=== PATIENT | male | born 1955 | race Caucasian/White ===

== ENCOUNTER → 2022-11-04 07:25 | Outpatient (CLI) | payer MEDICARE, OTHER, SELFPAY ==
--- NOTE | 2022-11-04 07:28 | DI.MRI.S_ITS ---
PROCEDURE: MR ABDOMEN WO/W CON INDICATIONS: Generalized abdominal pain TECHNIQUE: Coronal HASTE, axial 2D FLASH in- and [id number]; axial breath-hold T2 FSE. Dynamic axial VIBE during the administration of contrast; post-contrast coronal VIBE or 2D FLASH with fat saturation from the hepatic dome to the iliac crests. Optional diffusion weighted imaging and ADC may be performed. COMPARISON: None. FINDINGS: Image quality: Some sequences are motion degraded Lower chest: No pleural effusions. Lungs are not well evaluated on this study. Solid organs: [id number] hepatic steatosis. Suspected tiny liver cysts are present and no suspicious hepatic lesion. Gallbladder is unremarkable. No pathologic dilation of the biliary tree or pancreatic duct. No splenomegaly. No adrenal nodules. No hydronephrosis. Vessels and lymph nodes: No abdominal aortic aneurysm. There are atherosclerotic calcifications. There are prominent linda hepatis lymph nodes, overall not enlarged by size criteria, for example 18/57 measuring 9 mm in short axis. The main portal vein is patent. Bowel and peritoneum: No small bowel obstruction. No pathologic ascites. Body wall: Unremarkable Bones: No acute or suspicious osseous finding. IMPRESSION: No acute abdominal pelvic pathology. Suspected hepatic steatosis. Nonspecific prominent linda hepatis lymph nodes may be due to chronic liver disease, versus an incidental finding. Please correlate with LFTs. Dictated by: Robert Wells M.D. on 11/05/2022 at 9:34 Approved by: Robert Wells M.D. on 11/05/2022 at 9:40
== END ==
PROVIDERS: PCP Nurse Practitioner Family; Referring Provider Internal Medicine Gastroenterology; Visit Provider Internal Medicine Gastroenterology
DX: R10.84 Generalized abdominal pain (principal)
CPT/HCPCS: 74183; A9579

== ENCOUNTER → 2023-03-07 09:41 | Outpatient (CLI) | payer MEDICARE, OTHER, SELFPAY ==
--- NOTE | 2023-03-08 02:05 | DI.NM.S_ITS ---
DATE OF SERVICE: 03/07/2023 INDICATIONS: Chest pain with underlying diabetes mellitus, hypertension, hyperlipidemia. RADIOPHARMACEUTICAL: 22.5 millicurie technetium-99m Myoview IV was injected at stress and 11.9 millicurie technetium-99m Myoview IV was injected at rest. CARDIAC STRESS: The patient underwent exercise perfusion study under the supervision of an attending staff. He walked on Jun protocol for 4 minutes and 7 seconds, achieved maximum heart rate of 160, which was 105% of target heart rate. Resting blood pressure 142/72 and peak blood pressure 214/80 mmHg. Achieved 5.8 METs of workload. Functional aerobic impairment positive 37%. In the recovery, patient felt chest tightness, which lasted few minutes. Baseline rhythm was sinus with incomplete right bundle branch block and left anterior fascicular block. During stress, no convincing ischemic changes seen. No significant arrhythmias seen. RAW DATA: There is increased subdiaphragmatic activity. The patient's weight is 180 pounds. Resting LVEF 68% and stress LVEF 72% without any obvious wall motion abnormalities. Resting end-diastolic volume 127 mL. TID ratio 0.90, which is within normal limits. Lung/heart ratio 0.32, which is within normal limits. MYOCARDIAL PERFUSION SCAN: Stress supine, resting supine, and stress prone images were compared to each other. Stress supine and resting supine images revealed small size, mildly decreased perfusion of inferior wall extending into the inferoapex and basal inferolateral wall, which got significantly improved during stress prone images suggestive of diaphragmatic tissue attenuation artifact. No convincing ischemia or infarction pattern seen. CONCLUSION: I will call this study likely a normal myocardial perfusion study with evidence of tissue attenuation artifact, which got improved during stress prone images. Diminished exercise tolerance. Mildly hypertensive blood pressure response. Preserved left ventricular function. No complex arrhythmias. Some chest tightness in the recovery without any ischemic change at that time. Overall low-risk myocardial perfusion scan. Correlate clinically. Joseluis Guerra - NABEEL/chloe/gomez doc#: [id number]/job#: [id number] dd: 03/07/2023 17:00:00 dt: 03/08/2023 01:52:00 DICTATING MD/COPIES TO: Zeina Gómez MD COPIES MNE: JOSEPH;
== END ==
PROVIDERS: PCP Nurse Practitioner Family; Referring Provider Family Medicine; Visit Provider Family Medicine
DX: R07.89 Other chest pain (principal); E11.9 Type 2 diabetes mellitus without complications; I10 Essential (primary) hypertension
CPT/HCPCS: 78452; 93017; A9502

== ENCOUNTER → 2025-06-02 08:22 | Outpatient (CLI) | payer MEDICARE, OTHER, SELFPAY ==
--- NOTE | 2025-06-02 08:24 | DI.CT.S_ITS ---
PROCEDURE: CT HIP RIGHT WITHOUT CON INDICATIONS: right hip pain TECHNIQUE: Noncontrast 3 mm axial sections acquired through the bony pelvis. Additional 3 mm axial sections acquired through the symptomatic hip joint, with coronal and sagittal reformats. COMPARISON: None. FINDINGS: Image quality: Excellent. Bones: Moderate joint space narrowing with small subcortical cystic change in the peripheral acetabulum. Small peripheral acetabular osteophytes and superior predominant femoral head osteophytes. No fracture. No significant right hip joint effusion. Small right hip joint effusion. Normal alignment of the pubic symphysis. Mild enthesopathic change at the bilateral ischial tuberosities. Degenerative facet arthrosis at L4-5 and L5-S1. Mild joint space narrowing and small peripheral osteophytes of the bilateral sacroiliac joints. Large peripheral osteophytes of the left femoral acetabular joint concerning for underlying degenerative arthrosis. Soft tissues: Small mineralization on along the superior lateral acetabulum may represent sequela of a chronic labral tear. No focal fatty infiltration or atrophy of the bilateral hip girdle musculature. The muscle bulk is normal for age. Small diverticula in the proximal sigmoid colon without diverticulitis. Normal appendix. Moderate vascular calcifications. No lymphadenopathy. IMPRESSION: 1. No fracture. 2. At least moderate degenerative arthritis with likely areas of full-thickness articular cartilage loss in the superior peripheral femoral acetabular joint and peripheral osteophytosis. Dictated by: Fernando Buitrago M.D. on 06/02/2025 at 12:04 Approved by: Fernando Buitrago M.D. on 06/02/2025 at 12:08
== END ==
PROVIDERS: PCP Nurse Practitioner Family; Referring Provider Nurse Practitioner Family; Visit Provider Orthopaedic Surgery Adult Reconstructive Orthopaedic Surgery
DX: M16.11 Unilateral primary osteoarthritis, right hip (principal); M47.816 Spondylosis without myelopathy or radiculopathy, lumbar region; M25.551 Pain in right hip; M47.817 Spondylosis without myelopathy or radiculopathy, lumbosacral region; K57.30 Diverticulosis of large intestine without perforation or abscess without bleeding
CPT/HCPCS: 73700